=== PATIENT | female | born 1950 | race Caucasian/White ===

== ENCOUNTER → 2019-08-13 | Outpatient (CLI) | payer MEDICARE ==
--- NOTE | 2019-08-13 10:02 | RAD ---
EXAM: ULTRASOUND-GUIDED THYROID FINE-NEEDLE ASPIRATION OF 2 LEFT THYROID NODULES. HISTORY: Left thyroid nodules. Ultrasound-guided biopsy is requested. FINDINGS: The procedure along with its risks and benefits were explained to the patient. 3 agreed to proceed. A timeout procedure was performed. Sonographic images of the thyroid gland were obtained. The 2 cm solid target nodule in the lower pole, and a 1.2 cm solid nodule along the anterior aspect of the interpolar region, were adequately visualized for biopsy. The overlying skin was sterilely prepped and infiltrated with 1% lidocaine for local anesthesia. Under ultrasound guidance, 4 aspirates were obtained from the inferior nodule using 25-gauge needles. 4 additional passes were made through the nodule in the interpolar region. These were hand delivered to pathology who determined them adequate for diagnosis. A sterile dressing was placed. There were no immediate complications. IMPRESSION: 1. Successful ultrasound-guided fine-needle aspiration of 2 left thyroid nodules. Electronically signed by: Bruno Lemus MD (08/13/2019 9:59 AM) [facility]
--- NOTE | 2019-08-17 11:07 | PATHOLOGY ---
Note [facility] Accession Number: [id number] TESTS RESULT FLAG UNITS REF RANGE LAB Clinician Provided Cytology Information No. of containers..01 Other (Miscellaneous) Source: LT THYROID #1 DIAGNOSIS: LT THYROID #1 NEGATIVE FOR MALIGNANT CELLS. BETHESDA CATEGORY II. SPECIMEN CONSISTS OF ABUNDANT BENIGN FOLLICULAR CELLS, HEMOSIDERIN-LADEN MACROPHAGES, SCANT COLLOID AND BLOOD. THE PATTERN IS CONSISTENT WITH ADENOMATOID NODULE. THIS INTERPRETATION INCLUDES EVALUATION OF A CELL BLOCK. Pathologist ICD10: 02 E04.1 Signed out by: Bruce Vieira MD, Pathologist NPI- [id number] Performed by: Keara Lewis, [facility] ([facility] [place]) Gross description: 01 30ML, RED, CLOUDY /LCS 09/21/1840 0000 Local FLAG LEGEND: L-Low Normal,H-High Normal,LL-Alert Low,HH-Alert High <-Panic Low,>-Panic High,A-Abnormal,AA-Critical Abnormal Performed at: [facility] [address] [place] [address] Oscar Gilbert MD, 02 [facility] [address] [place] [address] Bruce Vieira MD, Specimen Comment: A courtesy copy of this report has been sent to [phone], [phone] Specimen Comment: [id number] Specimen Comment: [id number] Specimen Comment: Report sent to / DR WADDELL Performed at: [address], [place], [place] [id number] MD Oscar Gilbert MD Phone: [phone]
== END ==
LOC: US 08:06
PROVIDERS: ATTEND Family Medicine
DX: E04.1 Nontoxic single thyroid nodule (principal)
CPT/HCPCS: 10005; 10006; 60300; 76942; 88173; 88305